=== PATIENT | male | born 1960 | race Caucasian/White ===

== ENCOUNTER 2021-02-22 22:18 | Emergency (ER) | payer OTHER ==
[~2021-02-22] VITALS: Ht 182.9 cm; Wt 113.4 kg
[2021-02-22 22:35] LABS: Chloride (POC) 101 mmol/L (98-108); Creatinine (POC) 1.2 mg/dL (0.8-1.3); Glucose (ISTAT POC) 460 mg/dL (70-99); Hemoglobin (POC) 15.3 g/dL (13.5-17.5); Sodium (POC) 135 mmol/L (135-148); Total CO2 (POC) 15 mmol/L (21-32)
--- NOTE | 2021-02-22 23:11 | NUR ---
Call back - TOD Pt's son Allen was exited the room of the . Condolences offered. Allen wanted to leave the premises though he spoke to the RN briefly. I entered the room and provided a prayer on behalf of pt and son. Allen appeared to be grieving appropriately, though time with him was limited.
== END 2021-02-23 02:47 ==
LOC: ER 22:18
DX: I46.9 Cardiac arrest, cause unspecified (principal); R73.9 Hyperglycemia, unspecified; U07.1 COVID-19
CPT/HCPCS: 31500; 36415; 37195; 80047; 82947; 85014; 92950; 96374-59; 96375-59; 99285-25; J0282; J2997